=== PATIENT | male | born 1960 | race Two or more races ===

== ENCOUNTER 2020-08-06 18:56 | Emergency (ER) | payer BC ==
[~2020-08-06] VITALS: Ht 167.6 cm; Wt 95.7 kg
[2020-08-06 19:46] LABS: BASOPHILS % (AUTO) 0 % (0-1); EOSINOPHILS % (AUTO) 0 % (1-7); LYMPHOCYTES % (AUTO) 9 % (22-44); MEAN CORPUSCULAR HEMOGLOBIN 31.5 pg (27.5-34.5); MEAN CORPUSCULAR HGB CONC 33.4 g/dL (33.2-36.2); MEAN PLATELET VOLUME 8.4 fL (7.4-10.4); MONOCYTES % (AUTO) 7 % (2-9); NEUTROPHILS % (AUTO) 83 % (42-75); PLATELET COUNT 186 x10^3/uL (130-400); RED BLOOD COUNT 4.72 x10^6/uL (4.38-5.82); RED CELL DISTRIBUTION WIDTH 14.7 % (9.4-14.8)
[2020-08-06 19:48] LABS: ANION GAP 3 mmol/L (5-15); CALCIUM 9.1 mg/dL (8.5-10.1); CHLORIDE 108 mmol/L (98-107); CREATININE 1.38 mg/dL (0.7-1.3)
[2020-08-06 19:59] LABS: MD NO
[2020-08-06 20:21] VITALS: BP 170/88
== END 2020-08-06 20:23 | disposition home or self-care (01) ==
LOC: ED 20:00
DX: R53.1 Weakness (principal); E86.0 Dehydration; F12.10 Cannabis abuse, uncomplicated; F10.10 Alcohol abuse, uncomplicated; R94.31 Abnormal electrocardiogram [ECG] [EKG]; Y90.0 Blood alcohol level of less than 20 mg/100 ml; Z87.891 Personal history of nicotine dependence
CPT/HCPCS: 36415; 80048; 85025; 93005; 99284

== ENCOUNTER 2020-08-08 11:07 | Inpatient (IN) | payer BC ==
[~2020-08-08] VITALS: Ht 167.6 cm; Wt 96.0 kg
[2020-08-08 12:11] LABS: BASOPHILS % (AUTO) 1 % (0-1); EOSINOPHILS % (AUTO) 2 % (1-7); LYMPHOCYTES % (AUTO) 17 % (22-44); MEAN CORPUSCULAR HEMOGLOBIN 31.7 pg (27.5-34.5); MEAN CORPUSCULAR HGB CONC 33.4 g/dL (33.2-36.2); MEAN PLATELET VOLUME 8.4 fL (7.4-10.4); MONOCYTES % (AUTO) 9 % (2-9); NEUTROPHILS % (AUTO) 72 % (42-75); PLATELET COUNT 194 x10^3/uL (130-400); RED BLOOD COUNT 4.96 x10^6/uL (4.38-5.82); RED CELL DISTRIBUTION WIDTH 14.6 % (9.4-14.8)
[2020-08-08 12:23] LABS: ALBUMIN 4.5 g/dL (3.4-5.0); ANION GAP 4 mmol/L (5-15); CALCIUM 9.3 mg/dL (8.5-10.1); CHLORIDE 110 mmol/L (98-107); CREATININE 1.35 mg/dL (0.7-1.3)
[2020-08-08 12:27] LABS: MD NO
--- NOTE | 2020-08-08 15:45 | NUR ---
pt aware of urine that is needed, pt denied the urge to go at this time
[2020-08-08 16:23] LABS: MICROSCOPIC NOT IND
[2020-08-08 16:34] LABS: AMPHETAMINE SCREEN, URINE Negative (Negative); BARBITURATE SCREEN, URINE Negative (Negative); BENZODIAZEPINE SCREEN, URINE Negative (Negative); CANNABINOID SCREEN, URINE Negative (Negative); COCAINE SCREEN, URINE Negative (Negative); METHADONE SCREEN, URINE Negative (Negative); OPIATE SCREEN, URINE Negative (Negative)
--- NOTE | 2020-08-08 17:05 | NUR ---
PT AT MRI
--- NOTE | 2020-08-08 17:52 | NUR ---
Magdi cabrera in ED - 08/08/20 at 1804 by KAROLYN PT BACK FROM MRI
[2020-08-08] MEDS ORDERED: GADOTERATE 10 MMOL/20 ML SYR ONE (17:58)
--- NOTE | 2020-08-08 19:00 | NUR ---
Magdi cabrera in EDM - 08/08/20 at 1941 by KAROLYN PT PEDAL PULSES X2 INTACT WITH NO BLEDDING AT FEMRAL INSERTIION SITE,PT FLAT IN SUPINE POSITION
[2020-08-08] MEDS ORDERED: ASPIRIN 81 MG TABLET CHEW PO ONE (19:30)
[2020-08-08] MEDS ORDERED: ASPIRIN 81 MG TABLET CHEW ONE (20:01)
--- NOTE | 2020-08-08 20:47 | NUR ---
PT PLACED IN HOSPITAL FLOOR BED
[2020-08-08] MEDS: ATORVASTATIN 40 MG TABLET PO SCH (22:00)
[2020-08-08] MEDS ORDERED: ENALAPRILAT 1.25 MG/ML, 2ML IV PRN (22:00)
[2020-08-08] MEDS ORDERED: DOCUSATE 100 MG CAPSULE PO PRN (22:00)
[2020-08-08] MEDS ORDERED: ONDANSETRON ODT 4 MG PO PRN (22:00)
[2020-08-08] MEDS ORDERED: BISACODYL 10 MG SUPP PR PRN (22:00)
[2020-08-08] MEDS ORDERED: POLYETHYLENE GLYCOL 17 GM PACKET PO PRN (22:00)
[2020-08-08] MEDS ORDERED: ATORVASTATIN 40 MG TABLET ONE (23:02)
[2020-08-08] MEDS ORDERED: ACETAMINOPHEN 325 MG TABLET ONE (23:03)
[2020-08-08] MEDS: ACETAMINOPHEN 325 MG TABLET PO PRN (23:11)
[2020-08-08] MEDS ORDERED: CEFTRIAXONE PMX 1GM/50ML 50 ML IV SCH (23:30)
[2020-08-09] MEDS ORDERED: OLAN10TA9 PO (00:47)
[2020-08-09] MEDS ORDERED: BUPR100T8 PO (00:47)
[2020-08-09] MEDS ORDERED: LOSA50TA14 PO (00:47)
[2020-08-09] MEDS ORDERED: AMOX1TAB12 PO (00:47)
[2020-08-09] MEDS ORDERED: FLUO20TA25 PO (00:47)
--- NOTE | 2020-08-09 01:08 | NUR ---
PT RESTING IN BED, VSS, PT HAS NO WANTS OR NEEDS AT THIS TIME
[2020-08-09] MEDS ORDERED: OLANZAPINE 10 MG TABLET ONE (01:41)
--- NOTE | 2020-08-09 03:45 | NUR ---
PT RESTING IN HOSPITAL BED, VSS, PT HAS NO WANTS OR NEEDS AT THIS TIME
--- NOTE | 2020-08-09 04:57 | NUR ---
REPORT FROM JESU RODRIGUEZ
[2020-08-09 05:48] LABS: BASOPHILS % (AUTO) 1 % (0-1); EOSINOPHILS % (AUTO) 2 % (1-7); LYMPHOCYTES % (AUTO) 17 % (22-44); MEAN CORPUSCULAR HEMOGLOBIN 31.8 pg (27.5-34.5); MEAN PLATELET VOLUME 8.8 fL (7.4-10.4); MONOCYTES % (AUTO) 10 % (2-9); NEUTROPHILS % (AUTO) 70 % (42-75); PLATELET COUNT 180 x10^3/uL (130-400); RED BLOOD COUNT 4.44 x10^6/uL (4.38-5.82); RED CELL DISTRIBUTION WIDTH 14.4 % (9.4-14.8)
[2020-08-09 05:56] LABS: CHLORIDE 111 mmol/L (98-107)
[2020-08-09 05:57] LABS: ALANINE AMINOTRANSFERASE 37 U/L (12-78); ALBUMIN 3.7 g/dL (3.4-5.0); ANION GAP 5 mmol/L (5-15); CALCIUM 8.8 mg/dL (8.5-10.1); CHOLESTEROL, TOTAL 206 mg/dL (140-239); CREATININE 1.18 mg/dL (0.7-1.3)
[2020-08-09 05:57] LABS: MD NO
[2020-08-09 05:59] LABS: ALKALINE PHOSPHATASE 72 U/L (45-117); BILIRUBIN,TOTAL 0.4 mg/dL (0.2-1.0); CHOL/HDL RATIO 5.7; HDL CHOL % 17 % (26-37); HDL CHOLESTEROL (DIRECT) 36 mg/dL (40-60); LDL CHOLESTEROL,CALCULATED 130 mg/dL (54-169); LDL/HDL RATIO 3.6 (0.5-3.0); TOTAL PROTEIN 6.7 g/dL (6.4-8.2); TRIGLYCERIDES 200 mg/dL (50-200); VLDL CHOLESTEROL 40 mg/dL (0-25)
--- NOTE | 2020-08-09 07:00 | NUR ---
SBAR HAND-OFF REPORT RECEIVED FROM JESU AKERS. ASSUMING CARE OF PATIENT.
[2020-08-09] MEDS ORDERED: ASPIRIN 81 MG TABLET CHEW ONE (08:34)
[2020-08-09] MEDS: ASPIRIN 81 MG TABLET CHEW PO/NG SCH (09:08)
[2020-08-09] MEDS ORDERED: ACETAMINOPHEN 325 MG TABLET ONE ×2 (09:30→14:38)
[2020-08-09] MEDS: ACETAMINOPHEN 325 MG TABLET PO PRN ×2 (09:31→14:50)
--- NOTE | 2020-08-09 14:00 | NUR ---
PT RESTING COMFORTABLY. SO AT BEDSIDE.
[2020-08-09 17:45] VITALS: BP 100/76
[2020-08-09] MEDS: BUPROPION 100 MG TABLET PO SCH (21:00)
[2020-08-09] MEDS: OLANZAPINE 10 MG TABLET PO SCH (21:00)
[2020-08-09 21:45] VITALS: BP 107/57
[2020-08-09] MEDS ORDERED: OLANZAPINE 5 MG TABLET ONE (21:52)
[2020-08-09] MEDS: ATORVASTATIN 40 MG TABLET PO SCH (21:59)
[2020-08-10 00:51] VITALS: BP 122/81
[2020-08-10 07:06] VITALS: BP 180/110
[2020-08-10 07:07] VITALS: BP 136/97
[2020-08-10] MEDS: FLUOXETINE HCL 20 MG CAPSULE PO SCH (08:32)
[2020-08-10] MEDS: ASPIRIN 81 MG TABLET CHEW PO/NG SCH (08:33)
[2020-08-10] MEDS: BUPROPION 100 MG TABLET PO SCH ×2 (08:33→21:25)
[2020-08-10 12:47] VITALS: BP 148/90
[2020-08-10 18:50] VITALS: BP 183/92
[2020-08-10] MEDS: OLANZAPINE 10 MG TABLET PO SCH (21:25)
[2020-08-10] MEDS: ACETAMINOPHEN 325 MG TABLET PO PRN (21:25)
[2020-08-10] MEDS: ATORVASTATIN 40 MG TABLET PO SCH (21:25)
[2020-08-11 00:40] VITALS: BP 107/79
[2020-08-11 07:52] VITALS: BP 137/96
[2020-08-11] MEDS: BUPROPION 100 MG TABLET PO SCH (08:43)
[2020-08-11] MEDS: FLUOXETINE HCL 20 MG CAPSULE PO SCH (08:43)
[2020-08-11] MEDS: ASPIRIN 81 MG TABLET CHEW PO/NG SCH (08:44)
[2020-08-11] MEDS ORDERED: ASPI-515 PO/NG (10:56)
[2020-08-11] MEDS ORDERED: HYDR-826 PO (10:56)
[2020-08-11] MEDS ORDERED: ATOR40TA78 PO (10:56)
== END 2020-08-11 12:03 | disposition home or self-care (01) | DRG 66 ==
LOC: ED 14:02 → EDIP 20:20 → 5SO 08-09 16:58 → DCLOUNGE 08-11 11:50
PROVIDERS: ADMIT Family Medicine; ATTEND Hospitalist
DX: I63.40 Cerebral infarction due to embolism of unspecified cerebral artery (principal); E78.5 Hyperlipidemia, unspecified; W18.39XA Other fall on same level, initial encounter; I10 Essential (primary) hypertension; Z79.82 Long term (current) use of aspirin; Z80.0 Family history of malignant neoplasm of digestive organs; Z82.49 Family history of ischemic heart disease and other diseases of the circulatory system; Z85.828 Personal history of other malignant neoplasm of skin; Y93.89 Activity, other specified; Y92.091 Bathroom in other non-institutional residence as the place of occurrence of the external cause; Z88.8 Allergy status to other drugs, medicaments and biological substances; Z72.0 Tobacco use
CPT/HCPCS: 36415; 70450; 70553; 71045; 72141; 72146; 80048; 80053; 80061; 80307; 81003; 82040; 82550; 83735; 84443; 85025; 85651; 93005; 93306; 93356; 93880; G0378; A9575

== ENCOUNTER 2020-09-25 08:37 | Day surgery (SDC) | payer BC ==
[~2020-09-25] VITALS: Ht 167.6 cm; Wt 95.5 kg
[~2020-09-25 08:37] MED LIST: AMOX1TAB12 PO; ASPI-515 PO/NG; ATOR40TA78 PO; BUPR100T8 PO; FLUO20TA25 PO; HYDR-826 PO; LOSA50TA14 PO; OLAN10TA9 PO
[2020-09-25] MEDS ORDERED: LIDOCAINE 2%, 20ML ONE (08:56)
== END 2020-09-25 10:03 | disposition home or self-care (01) ==
LOC: CACL 08:37
PROVIDERS: ATTEND Internal Medicine Clinical Cardiac Electrophysiology
DX: I63.9 Cerebral infarction, unspecified (principal); I10 Essential (primary) hypertension; E78.5 Hyperlipidemia, unspecified; F31.9 Bipolar disorder, unspecified; Z79.82 Long term (current) use of aspirin; Z79.899 Other long term (current) drug therapy; Z87.891 Personal history of nicotine dependence
CPT/HCPCS: 33285; C1764

== ENCOUNTER → 2020-10-15 | Outpatient (CLI) | payer BC ==
[~2020-10-15] MED LIST changes: +REGADENOSON 0.4 MG/5 ML SYRINGE ONE
== END | disposition home or self-care (01) ==
LOC: CFH 07:14
PROVIDERS: ATTEND Internal Medicine Clinical Cardiac Electrophysiology
DX: I10 Essential (primary) hypertension (principal); I63.9 Cerebral infarction, unspecified; I77.1 Stricture of artery; R07.9 Chest pain, unspecified
CPT/HCPCS: 78452; 93017; A9502; J2785

== ENCOUNTER 2020-10-22 13:23 | Emergency (ER) | payer BC ==
[~2020-10-22] VITALS: Ht 167.6 cm; Wt 100.9 kg
[~2020-10-22 13:23] MED LIST changes: -REGADENOSON 0.4 MG/5 ML SYRINGE ONE
[2020-10-22] MEDS ORDERED: KETOROLAC 30 MG/1 ML IM ONE (14:00)
[2020-10-22] MEDS ORDERED: METHOCARBAMOL 750 MG TABLET PO ONE (14:00)
[2020-10-22] MEDS ORDERED: KETOROLAC 60 MG/2 ML ONE (14:03)
[2020-10-22] MEDS ORDERED: METHOCARBAMOL 750 MG TABLET ONE (14:03)
[2020-10-22 14:24] LABS: BASOPHILS % (AUTO) 1 % (0-1); EOSINOPHILS % (AUTO) 2 % (1-7); LYMPHOCYTES % (AUTO) 13 % (22-44); MEAN CORPUSCULAR HEMOGLOBIN 32.2 pg (27.5-34.5); MEAN CORPUSCULAR HGB CONC 34.2 g/dL (33.2-36.2); MEAN PLATELET VOLUME 8.4 fL (7.4-10.4); MONOCYTES % (AUTO) 9 % (2-9); NEUTROPHILS % (AUTO) 76 % (42-75); PLATELET COUNT 240 x10^3/uL (130-400); RED BLOOD COUNT 4.23 x10^6/uL (4.38-5.82); RED CELL DISTRIBUTION WIDTH 15.8 % (9.4-14.8)
[2020-10-22 14:28] LABS: ALBUMIN 4.1 g/dL (3.4-5.0); CALCIUM 9.4 mg/dL (8.5-10.1); CHLORIDE 110 mmol/L (98-107); CREATININE 1.23 mg/dL (0.7-1.3)
[2020-10-22 14:35] LABS: ANION GAP 5 mmol/L (5-15)
[2020-10-22 14:36] LABS: MD NO
--- NOTE | 2020-10-22 16:07 | NUR ---
Pt sitting up right in position of comfort. On phone, DAILY. States pain is resolved.
--- NOTE | 2020-10-22 16:38 | NUR ---
Pt to imaging.
[2020-10-22] MEDS ORDERED: OMNIPAQUE 350 MG/ML, 75ML BOTTLE ONE (16:55)
--- NOTE | 2020-10-22 17:32 | NUR ---
Task RN- pt reating in bed, family at bedside.
[2020-10-22 18:02] VITALS: BP 107/65
== END 2020-10-22 18:04 | disposition home or self-care (01) ==
LOC: ED 14:28
DX: R06.02 Shortness of breath (principal); R07.89 Other chest pain; M54.6 Pain in thoracic spine; R25.2 Cramp and spasm
CPT/HCPCS: 36415; 71045; 71275; 80048; 82040; 85025; 85379; 93005; 96372; 99285; J1885; Q9967

== ENCOUNTER 2020-10-25 21:56 | Observation (INO) | payer BC ==
[~2020-10-25] VITALS: Ht 167.6 cm; Wt 99.6 kg
--- NOTE | 2020-10-25 22:55 | NUR ---
Patient to room from triage via wheelchair. States approximately 1300 today began experiencing sharp pain in left frontal area similar to previous episode the past July when he was diagnosed as having mutiple strokes. States pain has stopped but weakness of left lower and upper extremities remain. Patient shuffles both feet, per is not normal for him, voice seems slow and his has been short of breath with minimal exertion the past 2 days.
[2020-10-25 23:07] LABS: ALANINE AMINOTRANSFERASE 121 U/L (12-78); ALBUMIN 3.5 g/dL (3.4-5.0); ANION GAP 4 mmol/L (5-15); BASOPHILS % (AUTO) 1 % (0-1); CALCIUM 9.4 mg/dL (8.5-10.1); CHLORIDE 109 mmol/L (98-107); CREATININE 1.27 mg/dL (0.7-1.3); EOSINOPHILS % (AUTO) 1 % (1-7); LYMPHOCYTES % (AUTO) 16 % (22-44); MD NO; MEAN CORPUSCULAR HEMOGLOBIN 31.8 pg (27.5-34.5); MEAN PLATELET VOLUME 8.1 fL (7.4-10.4); MONOCYTES % (AUTO) 12 % (2-9); NEUTROPHILS % (AUTO) 70 % (42-75); PLATELET COUNT 262 x10^3/uL (130-400); RED BLOOD COUNT 3.72 x10^6/uL (4.38-5.82); RED CELL DISTRIBUTION WIDTH 15.7 % (9.4-14.8)
[2020-10-25 23:12] LABS: ALKALINE PHOSPHATASE 143 U/L (45-117); BILIRUBIN,TOTAL 0.7 mg/dL (0.2-1.0); TOTAL PROTEIN 7.5 g/dL (6.4-8.2); TROPONIN I < 0.015 ng/mL (0.000-0.045)
[2020-10-26] MEDS ORDERED: ATORVASTATIN 80 MG TABLET PO SCH
[2020-10-26] MEDS ORDERED: SODIUM CHLORIDE 0.9% 1,000 ML IV SCH
[2020-10-26] MEDS ORDERED: DOCUSATE 100 MG CAPSULE PO PRN
[2020-10-26] MEDS ORDERED: ATORVASTATIN 80 MG TABLET ONE (00:34)
--- NOTE | 2020-10-26 01:58 | NUR ---
PATIENT REPORTS THAT HE IS HAVING R SHOULDER MUSCLE SPASMS SIMILAR TO PREVIOUS ED VISIT THIS PAST WEEK, REQUESTING PAIN MEDICATION/MUSCLE RELAXANT. MD NOTIFIED, WAITING FOR ORDER.
--- NOTE | 2020-10-26 02:04 | NUR ---
Report to Beckie NAILS.
[2020-10-26] MEDS ORDERED: METHOCARBAMOL 750 MG TABLET PO ONE (02:05)
[2020-10-26] MEDS ORDERED: METHOCARBAMOL 750 MG TABLET ONE (02:07)
[2020-10-26] MEDS ORDERED: KETOROLAC 30 MG/1 ML ONE (02:08)
[2020-10-26 03:13] VITALS: BP 120/54
[2020-10-26 05:59] LABS: BASOPHILS % (AUTO) 1 % (0-1); EOSINOPHILS % (AUTO) 1 % (1-7); LYMPHOCYTES % (AUTO) 10 % (22-44); MEAN CORPUSCULAR HEMOGLOBIN 31.9 pg (27.5-34.5); MEAN CORPUSCULAR HGB CONC 34.2 g/dL (33.2-36.2); MEAN PLATELET VOLUME 8.3 fL (7.4-10.4); MONOCYTES % (AUTO) 11 % (2-9); NEUTROPHILS % (AUTO) 78 % (42-75); PLATELET COUNT 265 x10^3/uL (130-400); RED BLOOD COUNT 3.61 x10^6/uL (4.38-5.82); RED CELL DISTRIBUTION WIDTH 15.8 % (9.4-14.8)
[2020-10-26 06:10] VITALS: BP 97/74
[2020-10-26 06:10] LABS: ANION GAP 5 mmol/L (5-15); CALCIUM 9.7 mg/dL (8.5-10.1); CHLORIDE 109 mmol/L (98-107)
[2020-10-26 06:11] LABS: CREATININE 1.18 mg/dL (0.7-1.3)
[2020-10-26 06:26] LABS: MD NO
[2020-10-26] MEDS ORDERED: ASPIRIN 81 MG TABLET EC PO SCH (09:00)
[2020-10-26] MEDS ORDERED: BUPROPION SR 100 MG TABLET PO SCH (09:00)
[2020-10-26] MEDS ORDERED: FLUOXETINE HCL 20 MG CAPSULE PO SCH (09:00)
[2020-10-26] MEDS ORDERED: ASPI-650 PO (09:28)
[2020-10-26 11:06] VITALS: BP 93/69
[2020-10-26] MEDS ORDERED: OLANZAPINE 10 MG TABLET PO SCH (21:00)
== END 2020-10-26 13:14 | disposition home or self-care (01) ==
LOC: ED 23:11 → EDIP 23:51 → INTOOBSV 23:51 → 4WST 10-26 02:47
PROVIDERS: ADMIT Family Medicine; ATTEND Hospitalist
DX: I69.354 Hemiplegia and hemiparesis following cerebral infarction affecting left non-dominant side (principal); I63.40 Cerebral infarction due to embolism of unspecified cerebral artery; I10 Essential (primary) hypertension; E78.5 Hyperlipidemia, unspecified; N17.0 Acute kidney failure with tubular necrosis; E86.0 Dehydration; G47.33 Obstructive sleep apnea (adult) (pediatric); E66.01 Morbid (severe) obesity due to excess calories; Z87.891 Personal history of nicotine dependence; Z79.899 Other long term (current) drug therapy; Z79.82 Long term (current) use of aspirin; Z85.828 Personal history of other malignant neoplasm of skin; Z68.35 Body mass index [BMI] 35.0-35.9, adult
CPT/HCPCS: 36415; 70450; 70551; 71045; 80048; 80053; 84484; 85025; 93005; 96360; 96361; 99285; G0378; J7030